=== PATIENT | male | born 1980 | race African-American/Black ===

== ENCOUNTER 2017-04-01 11:24 | Emergency (ER) | payer MEDICAID ==
[~2017-04-01] VITALS: Ht 177.8 cm; Wt 79.8 kg
--- NOTE | 2017-04-01 11:24 | NUR ---
On meeting the patient outside for triage the patient immediantly became confrontational. Shouting and yelling, attempted to set limits. Patient burst back into ER shouting for a doctor. Patient was eventually directed to ED bed for triage.
[2017-04-01 11:25] VITALS: BP 146/86; PULSE 72; RESP 16; TEMP 97.6; O2SAT 100
--- NOTE | 2017-04-01 11:25 | NUR ---
Placed in room 4 . Placed on monitor and storage bin tender, blood pressure machine and pulse oximeter. To gown for exam. Side rails up. Report given to Jayson BATES.
--- NOTE | 2017-04-01 11:35 | NUR ---
ER at bedside examining patient.
[2017-04-01] MEDS ORDERED: NACL 0.9% 1,000 ML IV ONE (11:37)
[2017-04-01] MEDS ORDERED: ONDANSETRON HCL 4 MG/2 ML VIAL IVP ONE (11:45)
[2017-04-01] MEDS ORDERED: DIPHENHYDRAMINE INJ 50 MG/ML VIAL IVP ONE (11:45)
[2017-04-01] MEDS ORDERED: MORPHINE 4 MG/ML INJ. SYRINGE IVP ONE (11:45)
--- NOTE | 2017-04-01 11:50 | NUR ---
PT PRESENTS TO ED C/O ELEVATED BS AND INSULIN PUMP NOT WORKING. PT REPORTS BS GREATER THAN 400. PT APPEARS AGITATED UPON PRESENTATION.PT'S AGITATION RESOLVED AFTER START OF TX. PT H/O NIDDM.
[2017-04-01 12:04] LABS: MONOCYTES # (AUTO) 0.1 K/uL (0.0-1.0)
[2017-04-01 12:09] LABS: BASOPHILS # (AUTO) 0.2 K/uL (0.0-0.2); BASOPHILS % (AUTO) 2.1 % (0.0-2.0); EOSINOPHILS # (AUTO) 0.1 K/uL (0.0-0.4); EOSINOPHILS % (AUTO) 0.7 % (0.0-4.0); HEMATOCRIT 43.6 % (36-54); HEMOGLOBIN 14.2 g/dL (14.0-18.0); LYMPHOCYTES # (AUTO) 0.8 K/uL (1.0-5.5); LYMPHOCYTES % (AUTO) 8.4 % (20.5-51.5); MEAN CORPUSCULAR HEMOGLOBIN 30 pg (27-31); MEAN CORPUSCULAR HGB CONC 33 % (32-36); MEAN CORPUSCULAR VOLUME 92 fL (79.0-98.0); MONOCYTES % (AUTO) 1.1 % (1.7-9.3); NEUTROPHILS # (AUTO) 8.4 K/uL (1.8-7.7); NEUTROPHILS % (AUTO) 87.7 % (40.0-70.0); PLATELET COUNT (AUTO) 263 K/uL (130-430); RED BLOOD CELL COUNT(AUTO) 4.75 MIL/uL (4.2-6.2); RED CELL DISTRIBUTION WIDTH 11.2 % (9.0-15.0); WHITE BLOOD COUNT (AUTO) 9.6 K/uL (4.8-10.8)
[2017-04-01 12:29] LABS: ANION GAP 15 (5-15); CALCIUM 9.8 mg/dL (8.4-11.0); CHLORIDE 97 mmol/L (98-107); CREATININE 1.44 mg/dL (0.55-1.30); POTASSIUM 4.6 mmol/L (3.5-5.1); SODIUM SERUM 135 mmol/L (136-145); UREA NITROGEN, BLOOD 19 mg/dL (8-21)
[2017-04-01 12:33] LABS: ALANINE AMINOTRANSFERASE 54 U/L (12-78); ALBUMIN 4.6 g/dL (3.4-4.8); ASPARTATE AMINOTRANSFERASE 28 U/L (10-37); LIPASE 40 U/L (73-393); TOTAL BILIRUBIN 1.2 mg/dL (0.0-1.0); TOTAL PROTEIN, SERUM 8.4 g/dL (6.4-8.3)
[2017-04-01 12:44] LABS: GFR AFRICAN AMERICAN 71 mL/min (>90); GLUCOSE 405 mg/dL (70-99)
--- NOTE | 2017-04-01 12:50 | NUR ---
PT SLEEPING EASIOLY AROUSABLE.PT STATES PAIN AND GENERAL DISCOMFORT RESOLVED.
--- NOTE | 2017-04-01 13:00 | NUR ---
blood sugar recheck 272. urine specimen collected and sent to lab.
[2017-04-01 13:10] LABS: BILIRUBIN,URINE NEGATIVE (NEGATIVE); BLOOD, URINE NEGATIVE (NEGATIVE); CLARITY/URINE CLEAR (CLEAR); COLOR,URINE YELLOW (YELLOW); GLUCOSE,URINE 3+ (NEGATIVE); KETONES,URINE 3+ (NEGATIVE); LEUKOCYTE ESTERASE ,URINE NEGATIVE (NEGATIVE); NITRITE, URINE NEGATIVE (NEGATIVE); PROTEIN URINE NEGATIVE (NEGATIVE); UROBILINOGEN,URINE 0.2 (0.2-1.0)
[2017-04-01 13:21] LABS: BARBITURATE, URINE NEGATIVE (NEG <=200); BENZODIAZEPINE, URINE NEGATIVE (NEG <=150); METHAMPHETAMINES SCREEN,URINE NEGATIVE (NEG <=500); URINE AMPHETAMINE NEGATIVE (NEG <=500); URINE METHADONE NEGATIVE (NEG <=200)
[2017-04-01 13:22] LABS: CANNABINOID, URINE POSITIVE (NEG <=50); COCAINE, URINE NEGATIVE (NEG <=150); OPIATE, URINE POSITIVE (NEG <=100); PHENCYCLIDINE SCREEN,URINE NEGATIVE (NEG <=25); UR TRICYCLIC ANTIDEPRESSANTS NEGATIVE (NEG <=300); URINE OXYCODONE SCREEN NEGATIVE (NEG <=100); URINE PROPOXYPHENE SCREEN NEGATIVE (NEG <=300)
[2017-04-01 13:42] LABS: BACTERIA,URINE RARE /HPF (None Seen); RBC,URINE NONE SEEN /HPF (0-3); WBC,URINE NONE SEEN /HPF (0-3)
[2017-04-01 14:28] LABS: ALCOHOL, BLOOD < 3 mg/dL (<10)
--- NOTE | 2017-04-01 14:35 | NUR ---
Patient given written and verbal discharge instructions and verbalizes understanding. ER MD discussed with patient the results and treatment provided. Patient in stable condition. ID arm band removed. IV catheter removed intact and dressing applied, no active bleeding. Patient educated on pain management and to follow up with PMD. Pain Scale 0. Opportunity for questions provided and answered.
[2017-04-01 14:38] VITALS: BP 140/86; PULSE 70; RESP 15; TEMP 97.6; O2SAT 100
== END 2017-04-01 14:35 | disposition home or self-care (01) ==
LOC: SED 11:24
DX: E11.65 Type 2 diabetes mellitus with hyperglycemia (principal); R07.89 Other chest pain
CPT/HCPCS: 36415; 71010; 80053; 80307; 81000; 82962; 83605; 83690; 84484; 85025; 93005; 96361; 96374; 96375; 99285; G0482; J1200; J2270; J2405; J7030

== ENCOUNTER 2017-04-22 16:27 | Emergency (ER) | payer MEDICAID ==
[~2017-04-22] VITALS: Ht 177.8 cm; Wt 70.3 kg
[2017-04-22 16:31] VITALS: BP 160/60; PULSE 70; RESP 16; TEMP 97.6; O2SAT 97
--- NOTE | 2017-04-22 16:39 | NUR ---
Patient to ER bed 5 to gown for evaluation. Side rails up. Report given to Kelly BATES.
--- NOTE | 2017-04-22 16:45 | NUR ---
Zena MARTINEZ at bedside for evaluation.
--- NOTE | 2017-04-22 16:50 | NUR ---
Patient is a ALOC x 4. Patient reports that he hit his hand on a wall two weeks ago and was having left 5th finger pain. He reports he was seen by urgent care and xrays were clear. Patient still complaining of pain to 5th finger. Pain 8/10. Cap Refill is <3 seconds with limited range of motion. No other complaints/injuries per patient or as noted.
[2017-04-22] MEDS ORDERED: IBUPROFEN 800 MG TABLET PO ONE (17:00)
[2017-04-22 17:38] VITALS: BP 160/60; PULSE 70; RESP 16; TEMP 97.6; O2SAT 97
--- NOTE | 2017-04-22 17:38 | NUR ---
Patient given written and verbal discharge instructions and verbalizes understanding. ER MD discussed with patient the results and treatment provided. Patient in stable condition. ID arm band removed. Rx of Motrin given. Patient educated on pain management and to follow up with PMD in 2 days. Pain Scale 0/10 Opportunity for questions provided and answered.
== END 2017-04-22 17:38 | disposition home or self-care (01) ==
LOC: SED 16:27
DX: S62.617A Displaced fracture of proximal phalanx of left little finger, initial encounter for closed fracture (principal); E11.9 Type 2 diabetes mellitus without complications; F17.210 Nicotine dependence, cigarettes, uncomplicated; Z71.6 Tobacco abuse counseling; W22.01XA Walked into wall, initial encounter; Y93.89 Activity, other specified; Y92.89 Other specified places as the place of occurrence of the external cause; Y99.8 Other external cause status
CPT/HCPCS: 99284

== ENCOUNTER 2017-05-26 14:40 | Emergency (ER) | payer MEDICAID ==
[~2017-05-26] VITALS: Ht 177.8 cm; Wt 70.3 kg
[2017-05-26 14:52] VITALS: BP_SYST 111
[2017-05-26] MEDS ORDERED: IBUPROFEN 800 MG TABLET PO ONE (15:30)
[2017-05-26 15:49] VITALS: BP_SYST 111
== END 2017-05-26 15:49 | disposition home or self-care (01) ==
LOC: SED 14:40
DX: S62.647A Nondisplaced fracture of proximal phalanx of left little finger, initial encounter for closed fracture (principal); R20.9 Unspecified disturbances of skin sensation; F41.9 Anxiety disorder, unspecified; E11.9 Type 2 diabetes mellitus without complications; Z97.8 Presence of other specified devices; X58.XXXD Exposure to other specified factors, subsequent encounter
CPT/HCPCS: 99284

== ENCOUNTER 2017-07-08 09:43 | Emergency (ER) | payer MEDICAID ==
[~2017-07-08] VITALS: Ht 177.8 cm; Wt 70.3 kg
[2017-07-08 09:43] VITALS: BP_SYST 119
[2017-07-08] MEDS ORDERED: KETOROLAC TROMETHAMINE 30 MG VIAL IM ONE (10:00)
[2017-07-08 11:41] VITALS: BP_SYST 127
== END 2017-07-08 11:41 | disposition home or self-care (01) ==
LOC: SED 09:43
DX: J32.9 Chronic sinusitis, unspecified (principal); E11.9 Type 2 diabetes mellitus without complications
CPT/HCPCS: 36415; 70486; 86403; 87081; 96372; 99285; J1885

== ENCOUNTER 2018-06-01 18:42 | Emergency (ER) | payer SELFPAY ==
[~2018-06-01] VITALS: Ht 180.3 cm; Wt 64.9 kg
[2018-06-01 18:46] VITALS: BP_SYST 111
[2018-06-01] MEDS ORDERED: SODIUM BICARBONATE 8.4% VIAL 50 MEQ/50 ML VIAL INJ ONE (19:15)
[2018-06-01] MEDS ORDERED: LIDOCAINE 2%, 20 ML MDV INJ ONE (19:15)
[2018-06-01 20:06] VITALS: BP_SYST 116
[2018-06-01] MEDS ORDERED: IBUPROFEN 800 MG TABLET PO ONE (20:15)
== END 2018-06-01 20:06 | disposition home or self-care (01) ==
LOC: SED 18:42
DX: L02.214 Cutaneous abscess of groin (principal); F32.9 Major depressive disorder, single episode, unspecified; F41.9 Anxiety disorder, unspecified; E10.9 Type 1 diabetes mellitus without complications; Z76.0 Encounter for issue of repeat prescription
CPT/HCPCS: 10060; 87070; 87186; 99284; J2001

== ENCOUNTER 2018-07-07 18:56 | Emergency (ER) | payer SELFPAY ==
[~2018-07-07] VITALS: Ht 177.8 cm; Wt 64.9 kg
[2018-07-07 19:14] VITALS: BP_SYST 128
[2018-07-07 20:03] VITALS: BP_SYST 128
== END 2018-07-07 20:03 | disposition home or self-care (01) ==
LOC: SED 18:56
DX: D17.1 Benign lipomatous neoplasm of skin and subcutaneous tissue of trunk (principal); R03.0 Elevated blood-pressure reading, without diagnosis of hypertension; E11.9 Type 2 diabetes mellitus without complications; F32.9 Major depressive disorder, single episode, unspecified; F41.9 Anxiety disorder, unspecified; Z76.0 Encounter for issue of repeat prescription
CPT/HCPCS: 99283